=== PATIENT | male | born 1995 | race Caucasian/White ===

== ENCOUNTER 2019-01-15 05:36 | Emergency (ER) | payer SELFPAY ==
[~2019-01-15] VITALS: Ht 175.3 cm; Wt 52.2 kg
[2019-01-15] MEDS ORDERED: TETANUS-DIPTH-ACEL PERTUSSIS 0.5ML SYRG IM ONE (07:45)
[2019-01-15 07:53] VITALS: BP 126/90
== END 2019-01-15 08:07 | disposition home or self-care (01) ==
LOC: ER 05:36
DX: S61.012A Laceration without foreign body of left thumb without damage to nail, initial encounter (principal); Z91.013 Allergy to seafood; W54.0XXA Bitten by dog, initial encounter; Y93.89 Activity, other specified; Y99.8 Other external cause status; Y92.89 Other specified places as the place of occurrence of the external cause
CPT/HCPCS: 12002; 90471; 90715